=== PATIENT | female | born 1945 | race Two or more races ===

== ENCOUNTER 2023-03-26 10:24 | Emergency (ER) | payer MEDICARE ==
[~2023-03-26] VITALS: Ht 160 cm; Wt 74.2 kg
[2023-03-26 10:28] VITALS: BP 155/120
[2023-03-26] MEDS ORDERED: naproxen 500mg tablet PO ONE (11:45)
[2023-03-26] MEDS ORDERED: predniSONE 20 mg tablet PO ONE (11:45)
[2023-03-26] MEDS ORDERED: NAPR-56 PO (11:46)
[2023-03-26] MEDS ORDERED: PRED20TA PO (11:46)
== END 2023-03-26 12:08 | disposition home or self-care (01) ==
LOC: ER 10:25
DX: M02.331 Reiter's disease, right wrist (principal); Z88.8 Allergy status to other drugs, medicaments and biological substances; Z79.899 Other long term (current) drug therapy
CPT/HCPCS: 29125; 73130; 99283; J7512